=== PATIENT | male | born 1960 | race Caucasian/White ===

== ENCOUNTER 2024-07-17 12:32 | Emergency (ER) | payer OTHER ==
[~2024-07-17] VITALS: Ht 182.9 cm; Wt 106.5 kg
[2024-07-17 13:09] LABS: BASOPHILS % (AUTO) 0.7 % (0-1); EOSINOPHILS # (AUTO) 0.1 X10'3 (0-0.9); EOSINOPHILS % (AUTO) 0.9 % (0-6); HEMATOCRIT 44.4 % (42.0-52.0); LYMPHOCYTES # (AUTO) 1.9 X10'3 (1.1-4.8); LYMPHOCYTES % (AUTO) 28.3 % (21-51); MEAN CORPUSCULAR HEMOGLOBIN 30.4 PG (27.0-31.0); MEAN CORPUSCULAR HGB CONC 33.9 g/dL (33.0-36.5); MEAN CORPUSCULAR VOLUME 89.8 FL (78-98); MEAN PLATELET VOLUME 8.1 FL (7.4-10.4); MONOCYTES # (AUTO) 0.6 X10'3 (0-0.9); MONOCYTES % (AUTO) 9.3 % (2-12); NEUTROPHILS % (AUTO) 60.8 % (42-75); PLATELET COUNT 246 X10'3 (140-440); RED BLOOD COUNT 4.94 X10'6 (4.70-6.10); RED CELL DISTRIBUTION WIDTH 13.8 % (11.5-14.5); WHITE BLOOD COUNT 6.6 X10'3 (4.5-11.0)
[2024-07-17 13:20] LABS: ALANINE AMINOTRANSFERASE 38 U/L (12-78); ALBUMIN/GLOBULIN RATIO 1.1 (1.1-1.5); ALKALINE PHOSPHATASE 94 IU/L (46-116); ANION GAP 8 (8-16); ASPARTATE AMINO TRANSFERASE 27 U/L (10-37); BILIRUBIN,TOTAL 0.5 MG/DL (0.1-1.0); BLOOD UREA NITROGEN 13 MG/DL (7-18); BUN/CREATININE RATIO 15.7 (10.0-20.0); CHLORIDE 102 MMOL/L (99-107); CREATININE 0.83 MG/DL (0.60-1.10); GLUCOSE 90 MG/DL (70-104); POTASSIUM 3.9 MMOL/L (3.5-5.1); SODIUM 137 MMOL/L (135-145); TOTAL CARBON DIOXIDE 26.9 MMOL/L (24-32); TOTAL PROTEIN 7.7 G/DL (6.4-8.2); eCRCL 101 ML/MIN; eGFR > 90 ML/MIN
[2024-07-17 13:28] LABS: PRO BRAIN NATRIURETIC PEPTIDE 53 PG/ML (0-125)
[2024-07-17] MEDS: atorvastatin 20mg tablet PO STA (15:39)
[2024-07-17] MEDS: aspirin 81mg tab.chew PO ONE (15:39)
[2024-07-17] MEDS: losartan 50mg tablet PO STA (15:48)
[2024-07-17] MEDS ORDERED: ASPI-529 PO (16:23)
[2024-07-17] MEDS ORDERED: LOSA50TA64 PO (16:23)
[2024-07-17] MEDS ORDERED: ATOR40TA71 PO (16:23)
[2024-07-17 16:50] VITALS: PULSE 63
[2024-07-17 16:52] VITALS: BP 150/92; RESP 19; TEMP 97.8; O2SAT 98
== END 2024-07-17 16:54 | disposition home or self-care (01) ==
LOC: ER 12:33
DX: I10 Essential (primary) hypertension (principal); R07.89 Other chest pain; R29.810 Facial weakness; E78.5 Hyperlipidemia, unspecified; Z79.899 Other long term (current) drug therapy
CPT/HCPCS: 36415; 70450; 71045; 80053; 83880; 84484; 85025; 93005; 99285

== ENCOUNTER 2025-05-20 15:49 | Emergency (ER) | payer OTHER ==
[~2025-05-20] VITALS: Ht 175.3 cm; Wt 84.1 kg
[~2025-05-20 15:49] MED LIST: ASPI-529 PO; ATOR40TA71 PO; LOSA50TA64 PO
[2025-05-20 15:53] VITALS: TEMP 98.4
[2025-05-20 16:24] LABS: MEAN PLATELET VOLUME 8.4 FL (7.4-10.4); RED CELL DISTRIBUTION WIDTH 13.5 % (11.5-14.5)
[2025-05-20 16:36] LABS: CREATININE 0.76 MG/DL (0.60-1.10); TOTAL CARBON DIOXIDE 25.4 MMOL/L (24-32); eCRCL 99 ML/MIN; eGFR > 90 ML/MIN
--- NOTE | 2025-05-20 17:43 | Physician Documentation ---
History of Present Illness Chief Complaint: Abdominal Pain Stated Complaint: SIDE PAIN/SWELLING Time Seen by MD: 17:15 Primary Medical Doctor: DR GUZMAN Mode of Arrival: POV HPI Patient is seen today with complaints of pain of his right abdomen with associated swelling in the right side of his abdomen over the last few days. Patient states he did voss up 60 roxann of hay yesterday but feels his pain and swelling is not associated with that necessarily. Patient states he has had kidney stones in the past but this pain feels different and he can not necessarily explain the swelling. Patient has no other concern or complaint at this time. He denies any chest pain or shortness of breath or nausea, vomiting, diarrhea. Patient states that he does have issues off and on with constipation. Patient denies any fevers or chills. He has no other concern or complaint at this time. Medication Reconciliation Allergies: Coded Allergies: No Known Allergies (Unverified , 05/20/25) Scheduled Aspirin (Baby Aspirin), 81 MG PO ONCE Atorvastatin Calcium (Atorvastatin Calcium), 1 TAB PO DAILY Losartan Potassium (Losartan Potassium), 1 TAB PO DAILY Review of Systems Constitutional: Denies: chills, fever, weakness Eyes: Denies: pain, blurred vision ENT: Denies: ear pain, nose pain, throat pain, mouth pain Respiratory: Denies: cough, shortness of breath Cardiovascular: Denies: chest pain, palpitations Gastrointestinal: Denies: abdominal pain, nausea, vomiting Genitourinary: Denies: burning, dysuria Male Genitalia: Denies: penile discharge, testicular pain Neurological: Denies: headache, dizziness Musculoskeletal: Denies: pain, swelling Integumentary: Denies: rash, lesions Allergic/Immunologic: Denies: hives, itching Hematologic/Lymphatic: Denies: no symptoms reported Psychiatric: Denies: depression, anxiety Physical Exam Vital Signs: Temperature: 98.4, Source: Temporal, Heart Rate: 82, Respiratory Rate: 17, BP: 139/89, Pulse Oximetry: 94, Weight: 84.090 Oxygen Flow Rate: 0 Physical Exam General: Awake and Alert, no acute distress. HEENT: Conjunctiva pink, Sclera clear, Mucus Membranes moist. Neck: Supple without masses and tenderness. Resp: Unlabored. Lungs clear to auscultation bilaterally. Heart: Regular Rate and rhythm, normal S1 and S2 without murmur, rub or gallop. Abdomen: Abdomen on exam is soft and nondistended with significant tenderness to palpation and guarding in the right side of his abdomen with associated mass or bulge on the right side of the abdomen. I do not appreciate any palpable dense mass on the right side however patient does have noticeable and appreciable bulge in the right abdomen. There is no rebound tenderness, normoactive bowel sounds Extremities: No cyanosis,clubbing or edema. Skin: Warm and Dry. Progress Results/Orders Results/Orders Vital Signs 05/20/25 05/20/25 05/20/25 15:53 16:24 16:30 Temp 98.4 Pulse 83 82 Resp 18 11 17 B/P (MAP) 183/114 139/89 (106) Pulse Ox 94 94 O2 Flow Rate 0 0 Laboratory Tests Test 05/20/25 16:11 White Blood Count 7.7 Red Blood Count 4.85 Hemoglobin 14.9 Hematocrit 44.2 Mean Corpuscular Volume 91.2 Mean Corpuscular Hemoglobin 30.6 Mean Corpuscular Hemoglobin Concent 33.6 Red Cell Distribution Width 13.5 Platelet Count 239 Mean Platelet Volume 8.4 Neutrophils (%) (Auto) 63.6 Lymphocytes (%) (Auto) 25.6 Monocytes (%) (Auto) 9.2 Eosinophils (%) (Auto) 1.0 Basophils (%) (Auto) 0.6 Neutrophils # (Auto) 4.9 Lymphocytes # (Auto) 2.0 Monocytes # (Auto) 0.7 Eosinophils # (Auto) 0.1 Basophils # (Auto) 0.0 CBC Comment Sodium Level 140 Potassium Level 3.5 Chloride Level 105 Carbon Dioxide Level 25.4 Anion Gap 10 Blood Urea Nitrogen 21 H Creatinine 0.76 Estimated GFR/1.73 m2 > 90 BUN/Creatinine Ratio 27.6 H Glucose Level 108 H Calcium Level 8.6 Total Bilirubin 0.4 Aspartate Amino Transf (AST/SGOT) 27 Alanine Aminotransferase (ALT/SGPT) 36 Alkaline Phosphatase 79 Total Protein 7.6 Albumin 3.8 Globulin 3.8 Albumin/Globulin Ratio 1.0 L Lipase 34 Chemistry Comments EKG/XRAY/CT/US/VASC/MRI CT : Impression CAT SCAN Patient: JARROD MENDOZA Medical Record: [id number] [facility] : 1960, Age: 65 Sex: Male Location: ER Patient Status: [facility] ER Service Date/Time: 05/20/251913 Ordering Physician: CHIOMA GUZMAN PAC Exam: CT ABDOMEN PELVIS EXAM: CT CT ABDOMEN PELVIS W/ IV CONTRAST HISTORY: right sided abdominal pain and mass TECHNIQUE: Volumetric multidetector CT images of the abdomen and pelvis were obtained after the administration of intravenous contrast. All CT scans at this facility use dose modulation, iterative reconstruction, and/or weight based dosing when appropriate to reduce radiation dose to as low as reasonably achievable. COMPARISON: None FINDINGS: [LOWER CHEST]: The partially visualized lung bases are clear without a pleural effusion. [LIVER]: Normal hepatic size without suspicious focal lesion. [GALLBLADDER AND BILIARY TREE]: No cholelithiasis. [SPLEEN]: Unremarkable. [PANCREAS]: Unremarkable. [ADRENAL GLANDS]: Unremarkable [KIDNEYS]: No hydronephrosis. No nephroureterolithiasis. [BLADDER]: Unremarkable for the degree distention. [REPRODUCTIVE ORGANS]: Unremarkable. [BOWEL/MESENTERY]: Small sliding hiatal hernia No CT evidence of bowel obstruction. Normal appendix. Mild stool burden [ASCITES]: Absent [LYMPHADENOPATHY]: No pathologically enlarged lymph nodes by CT size criteria [VASCULATURE]: No aneurysmal dilatation. [ABDOMINAL WALL]: Unremarkable. [MUSCULOSKELETAL]: No acute fracture or aggressive focal osseous lesion. Multifocal degenerative change of the visualized spine. Chronic asymmetric L5 pars defect. IMPRESSION: 1. No CT evidence of an acute abdominal/pelvic process. 2. No definitive visceral organ mass. 3. Mild stool burden primarily within the ascending colon. 4. Mild prostatomegaly. Electronically Signed by:JONNY CHUA MD Date & Time: 05/20/251935 Dictated by: JONNY CHUA MD Dictation date and time: 05/20/251913 Primary Care Provider: NO PRIMARY CARE PROVIDER cc: GUZMAN,CHIOMA R PAC ~ Medical Decision Making Findings Patient is seen today with complaints of pain of his right abdomen with associated swelling in the right side of his abdomen over the last few days. Patient states he did voss up 60 roxann of hay yesterday but feels his pain and swelling is not associated with that necessarily. Patient states he has had kidney stones in the past but this pain feels different and he can not necessarily explain the swelling. Patient has no other concern or complaint at this time. He denies any chest pain or shortness of breath or nausea, vomiting, diarrhea. Patient did have CT scan of the abdomen and pelvis that showed no significant or acute abdominal or intra-abdominal process. Patient did have excess stool in the colon mostly in the ascending colon which would be on the right side of the abdomen with the patient's pain is located. Patient will begin senna 1-2 tablets two to 3 times a day along with MiraLax two doses daily. Patient will follow up with primary care in 1-3 days if no better or as needed sooner. Return to ED with any worsening, concerning or changing symptoms. Departure Disposition: HOME / SELF CARE / HOMELESS Impression: Primary Impression: Abdominal pain Qualified Codes: R10.9 - Unspecified abdominal pain Additional Impression: Constipation Qualified Codes: K59.00 - Constipation, unspecified Condition: Stable Discharge Instructions: Constipation, Adult Additional Instructions: Patient did have CT scan of the abdomen and pelvis that showed no significant or acute abdominal or intra-abdominal process. Patient did have excess stool in the colon mostly in the ascending colon which would be on the right side of the abdomen with the patient's pain is located. Patient will begin senna 1-2 tablets two to 3 times a day along with MiraLax two doses daily. Patient will follow up with primary care in 1-3 days if no better or as needed sooner. Return to ED with any worsening, concerning or changing symptoms. Referrals: NO PRIMARY CARE PROVIDER (PCP) Prescriptions Polyethylene Glycol 3350 (Miralax) 17 Gram/Dose Powder 17 GM PO BID for constipation, #527 GM 0 Refills dissolve in water Prov: CHIOMA GUZMAN 05/20/ Sennosides/Docusate Sodium (Senna Plus 8.6-50 mg Tablet) 8.6 Mg-50 Mg Tablet 1-2 TAB PO TID for 10 Days, #60 TAB 0 Refills Prov: CHIOMA GUZMAN 05/20/25 Signature Scribe Signature: No scribe Attestation: No scribe CHIOMA GUZMAN PAC May 20, 2025 17:43
[2025-05-20] MEDS ORDERED: iohexol 300mg/ml 100ml inj. ONE (18:55)
--- NOTE | 2025-05-20 19:38 | RADIOLOGY REPORT ---
EXAM: CT CT ABDOMEN PELVIS W/ IV CONTRAST HISTORY: right sided abdominal pain and mass TECHNIQUE: Volumetric multidetector CT images of the abdomen and pelvis were obtained after the admin istration of intravenous contrast. All CT scans at this facility use dose modulation, iterative recon struction, and/or weight based dosing when appropriate to reduce radiation dose to as low as reasonab ly achievable. COMPARISON: None FINDINGS: [LOWER CHEST]: The partially visualized lung bases are clear without a pleural effusion. [LIVER]: Normal hepatic size without suspicious focal lesion. [GALLBLADDER AND BILIARY TREE]: No cholelithiasis. [SPLEEN]: Unremarkable. [PANCREAS]: Unremarkable. [ADRENAL GLANDS]: Unremarkable [KIDNEYS]: No hydronephrosis. No nephroureterolithiasis. [BLADDER]: Unremarkable for the degree distention. [REPRODUCTIVE ORGANS]: Unremarkable. [BOWEL/MESENTERY]: Small sliding hiatal hernia No CT evidence of bowel obstruction. Normal appendix. Mild stool burden [ASCITES]: Absent [LYMPHADENOPATHY]: No pathologically enlarged lymph nodes by CT size criteria [VASCULATURE]: No aneurysmal dilatation. [ABDOMINAL WALL]: Unremarkable. [MUSCULOSKELETAL]: No acute fracture or aggressive focal osseous lesion. Multifocal degenerative goddard ge of the visualized spine. Chronic asymmetric L5 pars defect. IMPRESSION: 1. No CT evidence of an acute abdominal/pelvic process. 2. No definitive visceral organ mass. 3. Mild stool burden primarily within the ascending colon. 4. Mild prostatomegaly.
[2025-05-20 21:45] LABS: LEUKOCYTE ESTERASE ,URINE NEGATIVE (Neg); NITRITES, URINE NEGATIVE (Neg); OCCULT BLOOD,URINE NEGATIVE (Neg)
[2025-05-20 21:47] LABS: UA COLLECTION TYPE CLN CATCH MIDSTREAM
[2025-05-20] MEDS ORDERED: SENN-302 PO (22:06)
[2025-05-20] MEDS ORDERED: POLY119P2 PO (22:06)
[2025-05-20 22:32] VITALS: BP 146/90; PULSE 63; RESP 14; O2SAT 97
== END 2025-05-20 22:34 | disposition home or self-care (01) ==
LOC: ER 15:49
DX: K59.00 Constipation, unspecified (principal); Z79.82 Long term (current) use of aspirin
CPT/HCPCS: 36415; 74177; 80053; 81003; 83690; 85025; 99285; Q9967